=== PATIENT | female | born 1970 | race Two or more races ===

== ENCOUNTER 2018-01-06 08:49 | Inpatient (IN) | payer MEDICAID ==
[2017-12-24 12:48] LABS: BASOPHILS % (AUTO) 0.6 % (0.0-2.0); HEMATOCRIT 29.9 % (37.0-47.0); HEMOGLOBIN 9.9 G/DL (12.0-16.0); MEAN CORPUSCULAR VOLUME 102 FL (80-99); MONOCYTES % (AUTO) 10.2 % (1.0-10.0); NEUTROPHILS % (AUTO) 63.2 % (45.0-75.0); PLATELET COUNT 151 K/UL (150-450); RED BLOOD COUNT 2.94 M/UL (4.20-5.40); RED CELL DISTRIBUTION WIDTH 18.1 % (11.6-14.8)
[2017-12-24 12:50] LABS: APPEARANCE,URINE CLEAR; BILIRUBIN, URINE NEGATIVE (NEGATIVE); COLOR,URINE PALE YELLOW; GLUCOSE, URINE (UA) NEGATIVE (NEGATIVE); KETONES,URINE NEGATIVE (NEGATIVE); LEUKOCYTE ESTERASE ,URINE 2+ (NEGATIVE); NITRITE,URINE NEGATIVE (NEGATIVE); PH,URINE 6 (4.5-8.0); PROTEIN,URINE NEGATIVE (NEGATIVE); UROBILINOGEN,URINE NORMAL MG/DL (0.0-1.0)
[2017-12-24 12:52] LABS: INR 0.9 (0.9-1.1)
[2017-12-24 13:04] LABS: ANION GAP 7 mmol/L (5-15); BLOOD UREA NITROGEN 8 mg/dL (7-18); CALCIUM 8.6 MG/DL (8.5-10.1); CARBON DIOXIDE 26 MMOL/L (21-32); CHLORIDE 106 MMOL/L (98-107); CREATININE 0.6 MG/DL (0.55-1.30); POTASSIUM 3.8 MMOL/L (3.5-5.1); SODIUM 139 MMOL/L (136-145)
--- NOTE | 2017-12-24 14:35 | Diagnostic Imaging Report ---
Indication: Cough Comparison: None A single view chest radiograph was obtained. Findings: Cardiomediastinal appearance is within normal limits for age. Right chest port is noted in good position. The tip projects over the SVC. Pulmonary vascularity is appropriate. The diaphragmatic contour is smooth and costophrenic angles are sharp. No pleural effusions are identified. The bones are unremarkable. Impression: No acute findings
--- NOTE | 2017-12-25 15:58 | Cardiology Report ---
APPROVED REPORT EKG Measurement Heart [id number] [id number] Sinus rhythm with frequent premature ventricular complexes Otherwise normal ECG
--- NOTE | 2018-01-03 16:30 | Pre-op HX & Phy Repo 2 SIG ---
DATE OF ADMISSION: 01/06/2018 SCHEDULED FOR SURGERY: 01/06/2018. 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 It was poorly differentiated and the patient presented initially in July 2017 with an enlarging left breast mass in March 2017. She had a 5 x 6 cm hard left breast mass near the areola and enlarged 6 left axillary lymph nodes. Core biopsies at that time revealed invasive ductal carcinoma, metastatic to the axillary lymph node. HER2 marker positive. ER/CA negative. The patient was treated with neoadjuvant chemotherapy and is now ready for surgery to involve left modified radical mastectomy. There has been a definite response with decrease in the size of the left breast mass as well as decrease in the size of the left axillary mass. MEDICATIONS: Prochlorperazine, Zofran, Statin ALLERGIES: none OPERATIONS: none PHYSICAL EXAMINATION: GENERAL: The patient is well developed and well nourished, 5 foot 159 pounds. VITAL SIGNS: Within normal limits. HEENT: Within normal limits. LUNGS: Clear. HEART: Regular rhythm. BREASTS: Examination of the right breast is unremarkable. Left breast reveals a 3 x 5 cm hard mass with small palpable axillary lymph nodes. There is no supraclavicular or cervical lymphadenopathy. ABDOMEN: Soft. PELVIC AND RECTAL: Per primary care physician's. EXTREMITIES: Without edema. NEUROLOGIC: Physiologic. IMPRESSION: 1. Stage III invasive ductal carcinoma, left breast with metastases to axillary lymph nodes. 2. Status post neoadjuvant chemotherapy. PLAN: The patient will undergo left modified radical mastectomy. I have had a complete discussion with the patient and her daughter regarding the nature of the surgery, indications, alternatives, options, and risks including bleeding, infection, recurrence of tumor despite the surgery either in the chest wall or axilla, need for additional therapy postoperatively, anesthetic reactions, deep vein thrombosis despite prophylaxis, etc. All questions have been answered. The patient understands and agrees to proceed. Nigel Samayoa M.D. DR: DYLLAN JOB#: [id number] CC: DUSTIN
[~2018-01-06] VITALS: Ht 152.4 cm; Wt 73.5 kg
[2018-01-06] VITALS (10 sets, daily range): BP systolic 113–147; BP diastolic 7–84
[~2018-01-06 08:49] MED LIST: LR 1000ml ONE; NS Irrig 1000ml ONE; Sterile Water Irrig 1000ml IRRIG ONE
[2018-01-06] MEDS ORDERED: NKM (09:41)
[2018-01-06] MEDS ORDERED: Lidocaine 1% 10mg/ml/Epi 0.005mg/ml 30ml vial INJ ONE (11:39)
[2018-01-06] MEDS ORDERED: EPINEPHrine 1mg/1ml Amp ONE (11:39)
[2018-01-06] MEDS ORDERED: Bupivacaine 0.5% Inj 30 ml vial INJ ONE (11:39)
--- NOTE | 2018-01-06 11:49 | Pre-Procedure Note/Attestation ---
Pre-Procedure Note/Attestation Complete Prior to Procedure Planned Procedure: left Procedure Narrative: left modified radical mastectomy Indications for Procedure Pre-Operative Diagnosis: stage 3 carcinoma left breast Attestation I attest that I discussed the nature of the procedure; its benefits; risks and complications; and alternatives (and the risks and benefits of such alternatives ), prior to the procedure, with the patient (or the patient's legal district representative). I attest that, if there was a reasonable possibility of needing a blood transfusion, the patient (or the patient's legal district representative) was given the [facility] standardized written summary, pursuant to the [place] Blood Safety Act ([place] Health and Safety Code # 1645, as amended). I attest that I re-evaluated the patient just prior to the surgery and that there has been no change in the patient's H&P, except as documented below: none Nigel Samayoa MD Jan 06, 2018 11:49
[2018-01-06] MEDS ORDERED: Propofol 200mg/20ml IV ONE (12:01)
[2018-01-06] MEDS ORDERED: fentaNYL 100 mcg/2 mL IV ONE (12:01)
[2018-01-06] MEDS ORDERED: Lidocaine 1% MPF 10mg/ml 5ml ONE (12:01)
[2018-01-06] MEDS ORDERED: Midazolam 2mg/2ml Inj ONE (12:01)
[2018-01-06] MEDS ORDERED: Sodium Chloride 10ml vial INJ ONE (12:04)
[2018-01-06] MEDS ORDERED: ePHEDrine 50mg/ml Inj ONE (12:39)
[2018-01-06] MEDS ORDERED: LR 1000ml 1,000 ML IVLG SCH (12:44)
[2018-01-06] MEDS ORDERED: LORazepam Inj 2mg/ml 1ml IV PRN (12:45)
[2018-01-06] MEDS ORDERED: Meperidine 50mg/ml Inj(FOR RIGORS ONLY) IVP PRN (12:45)
[2018-01-06] MEDS ORDERED: fentaNYL 100 mcg/2 mL IV PRN (12:45)
[2018-01-06] MEDS ORDERED: DiphenhydrAMINE 50mg/ml Inj IVP PRN (12:45)
--- NOTE | 2018-01-06 12:51 | Anethesia Preoperative Eval ---
Anesthesia Pre-op PMH/ROS General Date of Evaluation: Jan 06, 2018 Time of Evaluation: 12:00 Anesthesiologist: Олег ASA Score: ASA 2 Mallampati Score Class I : Soft palate, uvula, fauces, pillars visible Class II: Soft palate, uvula, fauces visible Class III: Soft palate, base of uvula visible Class IV: Only hard plate visible Mallampati Classification: Class II Surgeon: Yao Diagnosis: Left breast CA Surgical Procedure: Modified radical mastectomy Anesthesia History: none Family History: no anesthesia problems Allergies: Coded Allergies: No Known Allergies (Unverified , 01/03/18) Medications: see eMAR Past Medical History Cardiovascular: Denies: HTN, CAD, [place], valve dz, arrhythmia, other Pulmonary: Denies: asthma, COPD, DERIAN, other Gastrointestinal/Genitourinary: Denies: GERD, CRI, ESRD, other Neurologic/Psychiatric: Denies: dementia, CVA, depression/anxiety, TIA, other Endocrine: Denies: DM, hypothyroidism, steroids, other HEENT: Denies: cataract (L), cataract (R), glaucoma, TYONEK (L), TYONEK (R), other Hematology/Immune: Denies: anemia, DVT, bleeding disorder, other Musculoskeletal/Integumentary: Denies: OA, RA, DJD, DDD, edema, other PMH Narrative: Breast CA PSxH Narrative: None Anesthesia Pre-op Phys. Exam Physician Exam Last Vital Signs Date Time Temp Pulse Resp B/P (MAP) Pulse Ox O2 Delivery O2 Flow Rate FiO2 01/06/18 09:40 98.0 83 18 138/84 98 Room Air 98.0 Constitutional: NAD Neurologic: CN 2-12 intact Cardiovascular: RRR, no M/R/G Respiratory: CTA Gastrointestinal: S/NT/ND Airway Exam Mallampati Score: Class II MO: full ROM: full Teeth: intact Anesthesia Pre-op A/P Labs WNL Urine Test Test 01/06/18 09:00 Urine HCG, Qualitative Negative (NEGATIVE) Studies Pre-op Studies: EKG - SR Risk Assessment & Plan Assessment: Breast CA in an otherwise healthy female Plan: GA, LMA Status Change Before Surgery: Yes Pre-Antibiotics Drug: Ancef Given Within 1 Hr of Incision: Yes Time Given: 12:50 Rbo Denney MD Jan 06, 2018 12:51
--- NOTE | 2018-01-06 12:52 | Immediate Post-Op Evaluation ---
Immediate Post-Op Evalulation Immediate Post-Op Evalulation Procedure: Left radical mastectomy Date of Evaluation: Jan 06, 2018 Time of Evaluation: 14:30 IV Fluids: 1100 Estimated Blood Loss: 100 Blood Pressure Systolic: 127 Blood Pressure Diastolic: 76 Pulse Rate: 85 Respiratory Rate: 18 O2 Sat by Pulse Oximetry: 100 Temperature (Fahrenheit): 97.0 Pain Score (1-10): 0 Nausea: No Vomiting: No Complications No complication Patient Status: reacts, patent, none Hydration Status: adequate Drug: Ancef Given Within 1 Hr of Incision: Yes Time Given: 12:50 Rob Denney MD Jan 06, 2018 12:52
--- NOTE | 2018-01-06 14:22 | Brief Operative Note ---
Immediate Post Operative Note Operative Note Pre-op Diagnosis: stage 3 carcinoma left breast Procedure: left modified radical mastectomy Post-op Diagnosis: same Post-op Diagnosis: same as pre-op Findings: consistent w/pre-op dx studies Surgeon: rohit Anesthesiologist: lito Anesthesia: general Specimen: yes - left breast and axillary nodes Complications: none Condition: stable Fluids: see anesthesia record Estimated Blood Loss: volume - 100cc Drains: JOHNATHAN - JOHNATHAN x 2 Implant(s) used?: No Nigel Samayoa MD Jan 06, 2018 14:22
[2018-01-06] MEDS ORDERED: Ketorolac 30mg Inj IV PRN (14:30)
[2018-01-06] MEDS ORDERED: Norco 5mg/325mg tab ORAL PRN (14:30)
[2018-01-06] MEDS: Morphine Sulfate 4mg/ml Inj IVP PRN ×2 (15:42→22:14)
[2018-01-06] MEDS: D5 1/2NS w/KCl 20mEq 1,000 ML IV SCH (16:09)
--- NOTE | 2018-01-06 17:00 | Operative Note - Dictated ---
DATE OF OPERATION: 01/06/2018 SURGEON: Nigel Samayoa M.D. HEALTH SERVICES DIRECTOR: None. ANESTHESIOLOGIST: Dr. Rob Denney. TYPE OF ANESTHESIA: General. PREOPERATIVE DIAGNOSIS: Invasive ductal carcinoma, left breast, stage III POSTOPERATIVE DIAGNOSIS: Invasive ductal carcinoma, left breast, stage III OPERATION PERFORMED: Left modified radical mastectomy. INDICATIONS: The patient presented in July 2017, with a left breast mass enlarging since March 2017, with a 5 x 6 cm hard mass in the upper breast near the areola and enlarged left axillary lymph nodes. She was HER2-positive, estrogen and progesterone receptor negative, and core biopsies revealed invasive ductal carcinoma, metastatic to axillary lymph nodes. The patient received neoadjuvant chemotherapy and is now ready for surgery. There has been a marked decrease in the size of the left breast mass as well as the left axillary mass, which is no longer palpable. DESCRIPTION OF PROCEDURE: The patient was taken to the operating room and under general anesthesia with sequential compression device stockings in place and having received intravenous antibiotics, she was prepped and draped in usual fashion keeping the left upper extremity within the sterile field. A transverse incision was made in elliptical fashion going widely around the nipple-areolar complex. Skin flaps were dissected circumferentially towards the clavicle superiorly, sternum medially, costal margin inferiorly, and latissimus dorsi laterally. The breast was resected including pectoralis fascia and then the axillary contents resected preserving the long thoracic nerve and thoracodorsal nerves, achieving hemostasis with clips and cautery. There were some palpable small lymph nodes present. The specimen was given off the field to the pathologist who performed a gross examination confirming clear gross margins. The field was copiously irrigated and hemostasis secured with cautery. Through separate stab incisions inferiorly and laterally, two 19-mm round Mikal drains were placed, one under the flaps and one into the axilla, each was sutured to the skin with a 2-0 silk suture. The breast specimen had been oriented with sutures medially and superiorly. Now after ascertaining that hemostasis was secure, the incision was closed with interrupted 2-0 Vicryl deep dermal subcutaneous sutures followed by skin bud. The drains were placed to bulb suction with good apposition of the flaps to the chest wall and the axilla, and minimal output. Dry sterile dressings were applied. Final sponge and needle counts were correct. The patient tolerated the procedure well and left the operating room in good condition. Nigel Samayoa M.D. DR: Jovanni JOB#: [id number] CC: DUSTIN
[2018-01-07] VITALS (8 sets, daily range): BP systolic 87–110; BP diastolic 45–60
[2018-01-07] MEDS: D5 1/2NS w/KCl 20mEq 1,000 ML IV SCH ×2 (01:17→11:38)
[2018-01-07 06:03] LABS: EOSINOPHILS % (AUTO) 12.8 % (0.0-3.0); HEMATOCRIT 26.6 % (37.0-47.0); HEMOGLOBIN 8.9 G/DL (12.0-16.0); LYMPHOCYTES % (AUTO) 29.4 % (20.0-45.0); MEAN CORPUSCULAR VOLUME 103 FL (80-99); MONOCYTES % (AUTO) 10.5 % (1.0-10.0); NEUTROPHILS % (AUTO) 46.4 % (45.0-75.0); PLATELET COUNT 252 K/UL (150-450); RED BLOOD COUNT 2.59 M/UL (4.20-5.40); RED CELL DISTRIBUTION WIDTH 17.9 % (11.6-14.8); WHITE BLOOD COUNT 7.5 K/UL (4.8-10.8)
[2018-01-07 06:20] LABS: ANION GAP 7 mmol/L (5-15); BLOOD UREA NITROGEN 9 mg/dL (7-18); CALCIUM 8.5 MG/DL (8.5-10.1); CARBON DIOXIDE 27 MMOL/L (21-32); CHLORIDE 105 MMOL/L (98-107); CREATININE 0.7 MG/DL (0.55-1.30); POTASSIUM 3.7 MMOL/L (3.5-5.1); SODIUM 139 MMOL/L (136-145)
--- NOTE | 2018-01-07 08:17 | 48 Hour Post Anesthesia Eval ---
Post Anesthesia Evaluation Procedure: Left radical mastectomy Date of Evaluation: Jan 07, 2018 Time of Evaluation: 10:25 Blood Pressure Systolic: 110 0: 60 Pulse Rate: 90 Respiratory Rate: 19 Temperature (Fahrenheit): 98.7 O2 Sat by Pulse Oximetry: 96 Airway: patent Nausea: No Vomiting: No Pain Intensity: 1 Hydration Status: adequate Cardiopulmonary Status: Stable Mental Status/LOC: patient returned to baseline Follow-up Care/Observations: As per surgery Post-Anesthesia Complications: No anesthetic complication Follow-up care needed: N/A Rob Denney MD Jan 07, 2018 08:17
--- NOTE | 2018-01-07 11:54 | General Progress Note ---
Progress Note Progress Note AVSS with mildly low BP and pulse 90s. Has had Morphine IV x 2 and [place] - comfortable. Ambulated with slight dizzy feeling - voiding well Incision clean with mild soft tissue swelling, no ecchymosis JOHNATHAN drains: 71cc + 90cc Urine 750cc overnight Hgb pre-op 9.9 and this AM 8.9. BMP - wnl Imp. Pain, improving Anemia Plan: d/c IV fluids - maintain heplock f/u CBC in AM RN education re care of JOHNATHAN drains Nigel Samayoa MD Jan 07, 2018 11:54
[2018-01-08 00:03] VITALS: BP 93/57
[2018-01-08 04:20] VITALS: BP 95/57
[2018-01-08 07:32] LABS: BASOPHILS % (AUTO) 1.3 % (0.0-2.0); EOSINOPHILS % (AUTO) 15.7 % (0.0-3.0); HEMATOCRIT 26.5 % (37.0-47.0); HEMOGLOBIN 8.6 G/DL (12.0-16.0); LYMPHOCYTES % (AUTO) 35.2 % (20.0-45.0); MEAN CORPUSCULAR VOLUME 102 FL (80-99); MONOCYTES % (AUTO) 11.2 % (1.0-10.0); NEUTROPHILS % (AUTO) 36.7 % (45.0-75.0); PLATELET COUNT 249 K/UL (150-450); RED BLOOD COUNT 2.59 M/UL (4.20-5.40); RED CELL DISTRIBUTION WIDTH 17.4 % (11.6-14.8)
[2018-01-08 08:00] VITALS: BP 123/75
--- NOTE | 2018-01-08 08:18 | General Progress Note ---
Progress Note Progress Note Afebrile, denies need for analgesics. Ambulates but lightheaded and headache BP systolic under 100 Pulse 100 Incision clean, moderate soft tissue swelling, no hematoma or ecchymosis JOHNATHAN drains: 102 + 60 serosang Hgb 9.9 on admission, yesterday 8.9, this AM 8.6 Imp. Post-operative bleeding with pre-admission anemia Plan: Transfuse 1 unit PRBC STAT (type and Xmatch 2units) Empty JOHNATHAN drains q2-3h f/u CBC in AM Nigel Samayoa MD Jan 08, 2018 08:18
[2018-01-08 11:40] VITALS: BP 112/64
[2018-01-08 16:00] VITALS: BP 108/59
[2018-01-08 20:00] VITALS: BP 134/71
[2018-01-09] VITALS: BP 115/64
[2018-01-09 04:00] VITALS: BP 114/71
[2018-01-09 05:24] LABS: EOSINOPHILS % (AUTO) 18.6 % (0.0-3.0); HEMATOCRIT 30.6 % (37.0-47.0); HEMOGLOBIN 9.8 G/DL (12.0-16.0); LYMPHOCYTES % (AUTO) 30.4 % (20.0-45.0); MEAN CORPUSCULAR VOLUME 97 FL (80-99); MONOCYTES % (AUTO) 10.3 % (1.0-10.0); NEUTROPHILS % (AUTO) 39.7 % (45.0-75.0); PLATELET COUNT 279 K/UL (150-450); RED BLOOD COUNT 3.14 M/UL (4.20-5.40); RED CELL DISTRIBUTION WIDTH 19.9 % (11.6-14.8)
[2018-01-09 08:00] VITALS: BP 135/58
[2018-01-09 12:00] VITALS: BP 127/79
--- NOTE | 2018-01-09 15:06 | General Progress Note ---
Progress Note Progress Note Surgery: covering for Dr. Samayoa. Patient states she is doing great. pain improved. no n/v/f/c. JOHNATHAN drain with decreased output. one drain with 25cc ad one with 50cc. wound clean, dry, intact with bud. no signs of infection. Afebrile, HD stable. -drain with lower output removed at bedside. second drain left in place for removal in office Saturday - to d/c home -rx written -follow up with Saturday as scheduled patient instructed to call if any questions or concern.s thank you Jassi Mccoy Jan 09, 2018 15:06
[2018-01-09] MEDS ORDERED: NORCO 5-325 TA1 EACH ORAL (15:10)
[2018-01-09] MEDS ORDERED: COLACE100 MG ORAL (15:12)
--- NOTE | 2018-01-10 08:02 | Discharge Summary ---
Discharge Summary Hospital Course Date of Admission Jan 06, 2018 at 15:03 Date of Discharge Jan 09, 2018 at 15:48 Admitting Diagnosis left breast stage III invasive ductal carcinoma Reason for Hospitalization: Elective surgery HPI Estrella Lee is a 47 year old female who was admitted on Jan 06, 2018 at 15: 03 for Left Breast stage III invasive ductal carcinoma . Patient was admitted for elective surgery Procedures s/p 01/06/[address] Samayoa Left modified radical mastectomy. Hospital Course status post surgery pain management addressed, pain controlled out of bed as tolerated incentive spirometry while in the bed initially with IV fluids JOHNATHAN drains 2, output closely monitored. hemoglobin and hematocrit closely monitored. on admission anemic, however hemoglobin were trending down status post 1 unit packed red blood cells transfusion stable HH RN teaching and instruction regarding JOHNATHAN care at home. One JOHNATHAN was discontinued on 01/09 ( minimal output) follow-up with a surgeon on Saturday 01/13 at the office for postop visit as well as the removal of second JOHNATHAN. prescription provided for analgesic and stool softener patient tolerated diet patient voided freely patient ambulatory patient hemodynamically stable discharge instruction provided patient was stable for discharge home FINAL DIAGNOSES 1. Stage III invasive ductal carcinoma, left breast with metastases to axillary lymph nodes. 2. Status post neoadjuvant chemotherapy. 3. Status post 01/06 left breast modified radical mastectomy 4. Postoperative bleeding with preadmission anemia,status post blood transfusion Discharge Medications Continued Medications: Docusate Sodium* (Colace*) 100 Mg Capsule 100 MG ORAL TWICE A DAY, #60 CAP (This prescription has been renewed) Hydrocodone Bit/Acetaminophen 5-325* (Mack 5-325*) 1 Each Tablet 1 TAB ORAL Q6H PRN for For Pain, #30 TAB 0 Refills (This prescription has been renewed) Discharge Condition Upon Discharge: stable Discharge Disposition Patient was discharged to Home () Discharge Instructions Discharge Instructions Special Instructions I have been assigned to complete a D/C Summary on this account. I was not involved in the patient management Aissatou Moore NP Jan 10, 2018 08:02
== END 2018-01-09 15:48 | disposition home or self-care (01) | DRG 362 ==
LOC: SUR 08:49 → 3E 15:03
PROC: 07B60ZX Excision of Left Axillary Lymphatic, Open Approach, Diagnostic (ICD-10-PCS; 2018-01-06)
PROC: 30233N1 Transfusion of Nonautologous Red Blood Cells into Peripheral Vein, Percutaneous Approach (ICD-10-PCS; 2018-01-06)
PROC: 0HTU0ZZ Resection of Left Breast, Open Approach (ICD-10-PCS; principal; 2018-01-06 12:00)
DX: C50.912 Malignant neoplasm of unspecified site of left female breast (principal); C77.3 Secondary and unspecified malignant neoplasm of axilla and upper limb lymph nodes; Z17.1 Estrogen receptor negative status [ER-]; D64.9 Anemia, unspecified
CPT/HCPCS: 36415; 71045; 80048; 81001; 81025; 85025; 85610; 85730; 86850; 86900; 86901; 86920; 87081; 87086; 93005; 94003; 94150; J2250; J2405